=== PATIENT | female | born 1965 | race Hispanic/Latino ===

== ENCOUNTER → 2025-10-02 | Outpatient (CLI) | payer OTHER ==
[~2025-10-02] MED LIST: ERGO500093 PO; FOLATE PO; HYDR-4060 PO; MAGNESIUM PO; ONDA-104 PO; PROBIOTIC PO; RALO60TA13 PO; VIT B COMPLEX PO; VITAMIN A PO; VITAMIN E PO
--- NOTE | 2025-10-03 01:04 | HMCIMG ---
EXAM: XR Abdomen, 1 View. CLINICAL HISTORY: Generalized abdominal pain. COMPARISON: No previous images available. FINDINGS: Nonspecific bowel gas pattern is noted. No dilated small or large bowel loops are seen. No convincing air-fluid level. Fecal loading of the entire colon is noted, more marked in the ascending colon. No findings to suggest small or large bowel obstruction. IMPRESSION: 1. No findings to suggest small or large bowel obstruction 2. Fecal loading of the entire colon is noted, predominantly more marked in the ascending colon. 3. Fecal loading of the colon suggestive of constipation. /[place]
== END | disposition home or self-care (01) ==
LOC: RAH 09:16
PROVIDERS: ATTEND Internal Medicine
DX: R10.84 Generalized abdominal pain (principal)
CPT/HCPCS: 74018